=== PATIENT | male | born 1990 | race Caucasian/White ===

== ENCOUNTER 2024-05-24 22:04 | Outpatient (CLI) | payer MEDICAID, SELFPAY ==
--- OUTSIDE RECORDS SUMMARY | 2024-05-30 18:18 | XMS_ITS | Referral Summary ---
Author Organization [facility] Address [address] [place] [address] Care Team Providers Care Warning Analyst Name Role Phone Monserrat Kumar M.D. Primary Care Provider [phone] Source Comments Patient records contain information from all sites at [facility]. For routine questions regarding patient records, call [phone] during business hours, M-F 8:00 AM - 5:00 PM Central Time. Record requests for emergency care only can be directed to [phone] at any time.[facility] Allergies No known active allergies Medications Medication [...] Overview: Added automatically from request for surgery [id number] Nephrolithiasis 06/14/2020 Overview: Added automatically from request for surgery [id number] Abuse Tobacco Smoking 12/19/2018 Obesity Body Mass Index 30-39.9 Adult 03/31/2018 Phobia Social 01/12/2014 Anxiety Generalized Disorder Resolved Problems Problem Noted Date Diagnosed Date Resolved Date Urolithiasis 02/27/2021 08/10/2021 Ureterolithiasis 02/27/2021 08/10/2021 Nephrolithiasis Calcium Phosphate 11/16/2020 08/10/2021 Pain Flank 09/11/2020 03/04/2021 COVID-19 Infection 06/15/2020 Hydronephrosis 06/14/2020 08/10/2021 Overview: Added automatically from request for surgery [id number] Stone Ureteral 06/13/2020 08/10/2021 Pain Knee Right [...] often do you attend chur ch or advent services? Never 12/05/2021 Do you belong to any clubs o r organizations such as sabianism groups, unions, fraternal or athletic groups, or [...] Answer Date Recorded PHQ-2 Score 0 01/30/2024 [facility] - Occupational Stress Questionnaire Answer Date [...] place to sleep or slept in a detention (including now)? Patient refused 12/05/2021 Depression Answer [...] Answer Date Recorded Employment status Unemployed/not in th e paid workforce but seeking employment 12/05/2021 [...] Comments Blood Pressure 116/84 01/30/2024 12:37 PM IT DISASTER RECOVERY MANAGER Pulse 72 01/30/2024 12:37 PM IT DISASTER RECOVERY MANAGER Temperature 37 ??C (98.6 ??F) 12/06/2023 12:55 PM IT DISASTER RECOVERY MANAGER Respiratory Rate 18 01/30/2024 12:37 PM IT DISASTER RECOVERY MANAGER Oxygen Saturation 95% 12/06/2023 12:55 PM IT DISASTER RECOVERY MANAGER Inhaled Oxygen Concentration - - Weight 126 kg (278 lb 3.5 oz) 01/30/2024 12:37 P M IT DISASTER RECOVERY MANAGER Height 183.5 cm (6' 0.24) 01/30/2024 12:[address] Body Mass Index 37.48 01/30/2024 12:37 PM IT DISASTER RECOVERY MANAGER Plan of Treatment Upcoming Encounters Date Type Department Care Team (Late st Contact Info) Description 06/02/2024 2:00 PM CDT Office Visit Department of Urology in [place], [place] [address] [place] [address] Jacob Pacheco M.D. [address] [place] [address] Discharge Disposition: Home or Self Care 07/30/2024 2:30 PM CDT Office Visit Department of Family Medicine in [place], [place] [address] [place] [address] Monserrat Kumar M.D. [address] [address] Medical Devices Implanted Type Area Estate Planning Counselor Device Identifier Shelf Expiration Date Model / Serial / Lot Stnt Uret Inl 7fx26 - Sna - [id number] Implanted:Qty : 1 on 06/13/2020 by Prabhu Carrillo M.D. at [facility] Ureteral Stent Right: Ureter C.R.Bard 12/05/2023 [id number] / NA / [id number] Stnt Uret Inl 6fx26 - Sn/A - [id number] Implanted:Qty : 1 on 07/06/2020 by Ang Holm M.D. at [facility] Ureteral Stent Right: Ureter C.R.Bard 02/01/2024 [id number] / N/A / [id number] Stnt Uret Inl 6fx26 - Sn/A - [id number] Implanted:Qty : 1 on 02/28/2021 by Darwin Grimes M.D. at [facility] Ureteral Stent Left: Ureter C.R.Bard 07/02/2024 [id number] / N/A / [id number] Stnt Uret Inl 6fx24 - Sn/A - [id number] Implanted:Qty : 1 on 03/23/2021 at [facility] Ureteral Stent Left: Ureter C.R.Bard 06/08/2025 [id number] / N/A / [id number] Stnt Uret Inl 6fx26 - [id number] Implanted:Qty : 1 on 09/05/2021 by Ang Holm M.D. at [facility] Ureteral Stent Right: Ureter C.R.Bard 10/27/2025 [id number] / / [id number] Explanted Type Area Estate Planning Counselor Device Identifier Shelf Expiration Date Model / Serial / Lot Stnt Uret Inl 6fx26 - Sn/A - [id number] Implanted:Qty: 1 on 09/14/2020 by Ang Holm M.D. at [facility] Explanted:Qty: 1 on 03/23/2021 at [facility] Ureteral Stent C.R.Bard 02/01/2024 [id number] / N/A / [id number] Procedures Procedure Name Priority Date/Time Associated Diagnosis Comments OUTSIDE CT BODY Routine 05/24/2024 10:55 PM CDT from Last 3 Months Results * CT ABDOMEN PELVIS WO CON-Outside CT Body (05/24/2024 10:55 PM CDT) 05/24/2024 10:5 1 PM CDT Narrative IIMS - 05/25/2024 1:37 AM CDT This order has been created and auto-finalized to support the import of outside images. If available, original interpretation can be found on the Media Tab in Chart Review, in Document Viewer, as an image in QREADS or as an Addendum. If a re-interpretation or overread is required please follow defined workflow.?? Provider Not In System IMG CT PROCEDURES IIMS NA from Last 3 Months Advance Directives For more information, please contact: [phone] * Full Code (Latest Code Status on [...] Due to: Not medically appropriate Care Teams Warning Analyst Relationship Specialty Start Date End Date Monserrat Kumar M.D. [address] [place] [address] PCP - General Family Medicine 01/30/24
--- OUTSIDE RECORDS SUMMARY | 2024-05-30 18:18 | XMS_ITS ---
Author Organization [facility] Address [address] [place] [address] Care Team Providers Care Client Account Specialist Name Role Phone Unavailable Unavailable Unavailable Surgery Details Not on file Complications Check Surgery Details section. Procedure Estimated Blood Loss Check Surgery Details section. Procedure Findings Check Surgery Details section. Procedure Specimens Taken Check Surgery Details section.
--- OUTSIDE RECORDS SUMMARY | 2024-05-30 18:18 | XMS_ITS | Clinical Summary ---
Author Organization [facility] Address [address] [place] [address] Care Team Providers Care Quad Stayer Name Role Phone Monserrat Kumar M.D. Primary Care Provider [phone] [phone] Source Comments Patient records contain information from all sites at [facility]. For routine questions regarding patient records, call [phone] during business hours, M-F 8:00 AM - 5:00 PM Central Time. Record requests for emergency care only can be directed to [phone] at any time.[facility] Allergies No known active allergies Medications Medication [...] Overview: Added automatically from request for surgery [id number] Nephrolithiasis 06/14/2020 Overview: Added automatically from request for surgery [id number] Abuse Tobacco Smoking 12/19/2018 Obesity Body Mass Index 30-39.9 Adult 03/31/2018 Phobia Social 01/12/2014 Anxiety Generalized Disorder Resolved Problems Problem Noted Date Diagnosed Date Resolved Date Urolithiasis 02/27/2021 08/10/2021 Ureterolithiasis 02/27/2021 08/10/2021 Nephrolithiasis Calcium Phosphate 11/16/2020 08/10/2021 Pain Flank 09/11/2020 03/04/2021 COVID-19 Infection 06/15/2020 Hydronephrosis 06/14/2020 08/10/2021 Overview: Added automatically from request for surgery [id number] Stone Ureteral 06/13/2020 08/10/2021 Pain Knee Right [...] often do you attend chur ch or christianity services? Never 12/05/2021 Do you belong to any clubs o r organizations such as worship groups, unions, fraternal or athletic groups, or [...] Answer Date Recorded PHQ-2 Score 0 01/30/2024 [facility] - Occupational Stress [...] place to sleep or slept in a retirement (including now)? Patient refused 12/05/2021 Depression Answer [...] Answer Date Recorded Employment status Unemployed/not in [employer] paid workforce but seeking employment 12/05/2021 Education [...] Comments Blood Pressure 116/84 01/30/2024 12:37 PM GENERAL LOT ATTENDANT Pulse 72 01/30/2024 12:37 PM GENERAL LOT ATTENDANT Temperature 37 ??C (98.6 ??F) 12/06/2023 12:55 PM GENERAL LOT ATTENDANT Respiratory Rate 18 01/30/2024 12:37 PM GENERAL LOT ATTENDANT Oxygen Saturation 95% 12/06/2023 12:55 PM GENERAL LOT ATTENDANT Inhaled Oxygen Concentration - - Weight 126 kg (278 lb 3.5 oz) 01/30/2024 12:37 P M GENERAL LOT ATTENDANT Height 183.5 cm (6' 0.24) 01/30/2024 12:[address] Body Mass Index 37.48 01/30/2024 12:37 PM GENERAL LOT ATTENDANT Plan of Treatment Upcoming Encounters Date Type Department Care Team (Late st Contact Info) Description 06/02/2024 2:00 PM CDT Office Visit Department of Urology in [place], [place] [address] [place] [address] Jacob Pacheco M.D. [address] [place] [id number] Discharge Disposition: Home or Self Care 07/30/2024 2:30 PM CDT Office Visit Department of Family Medicine in [place], [place] [address] [place] [address] Monserrat Kumar M.D. [address] [place] [address] Health Maintenance Due Date Last Done Comments Influenza Vaccine (#1) 2024 , 08/14/2019, 08/14/2019, Additional history exists COVID-19 Vaccine ( season) 2025 10/21/2021, 04/06/2021 Postponed from 07/27/2023 [...] this topic Medical Devices Implanted Type Area Music Video Producer Device Identifier Shelf Expiration Date Model / Serial / Lot Stnt Uret Inl 7fx26 - Sna - [id number] Implanted:Qty : 1 on 06/13/2020 by Prabhu Carrillo M.D. at [facility] Ureteral Stent Right: Ureter C.R.Bard 12/05/2023 [id number] / NA / [id number] Stnt Uret Inl 6fx26 - Sn/A - [id number] Implanted:Qty : 1 on 07/06/2020 by Ang Holm M.D. at [facility] Ureteral Stent Right: Ureter C.R.Bard 02/01/2024 [id number] / N/A / [id number] Stnt Uret Inl 6fx26 - Sn/A - [id number] Implanted:Qty : 1 on 02/28/2021 by Darwin Grimes M.D. at [facility] Ureteral Stent Left: Ureter C.R.Bard 07/02/2024 [id number] / N/A / [id number] Stnt Uret Inl 6fx24 - Sn/A - [id number] Implanted:Qty : 1 on 03/23/2021 at [facility] Ureteral Stent Left: Ureter C.R.Bard 06/08/2025 [id number] / N/A / [id number] Stnt Uret Inl 6fx26 - [id number] Implanted:Qty : 1 on 09/05/2021 by Ang Holm M.D. at [facility] Ureteral Stent Right: Ureter C.R.Bard 10/27/2025 [id number] / / [id number] Explanted Type Area Music Video Producer Device Identifier Shelf Expiration Date Model / Serial / Lot Stnt Uret Inl 6fx26 - Sn/A - [id number] Implanted:Qty: 1 on 09/14/2020 by Ang Holm M.D. at [facility] Explanted:Qty: 1 on 03/23/2021 at [facility] Ureteral Stent C.R.Bard 02/01/2024 [id number] / N/A / [id number] Procedures Procedure Name Priority Date/Time Associated Diagnosis [...] Advance Directives For more information, please contact: [phone] * Full Code (Latest Code Status on [...] Due to: Not medically appropriate Care Teams Quad Stayer Relationship Specialty Start Date End Date Monserrat Kumar M.D. [address] [place] [phone] PCP - General Family Medicine 01/30/24
--- OUTSIDE RECORDS SUMMARY | 2024-05-30 18:18 | XMS_ITS | Clinical Summary ---
Author Organization [employer] [facility] Address [place], [place] [address] Care Team Providers Care Optical Scientist Name Role Phone Monserrat Kumar MD Primary Care Provider +- [phone] Allergies No known active allergies Medications Medication Sig Dispensed Refills Start Date End Date Status venlafaxine extended release (VENLAFAXINE XR, EcoloCap,) 150 mg extended release tablet Take 150 [...] Active Problems Problem Noted Date Diagnosed Date Generalized anxiety disorder 05/25/2024 Kidney stone 08/09/2022 Calculus of ureter 08/19/2021 Overview: Added automatically from request for surgery [id number] Tobacco dependence syndrome 12/19/2018 Obesity with body mass index 30 or greater 03/31 Social phobia 01/12/2014 Encounters Date Type Department Care Team Description 05/25/2024 8:00 AM CDT Hospital Encounter [facility] [address] [place] [address] [facility] [place] [place] Hospitalists Of from Last 3 Months Social History Tobacco Use Types Packs/Day Years Used Date Smoking Tobacco: Every Day Smokeless Tobacco: Never Alcohol Use Standard Drinks/Week Comments Not Currently 0 (1 standard drink = 0.6 oz pur e alcohol) Sex and Gender Information Value Date Recorded Sex Assigned at Male 01/10/2024 8:35 PM [employer] Gender Identity Male 01/10/2024 8:35 PM [employer] Sexual Orientation Straight 01/10/2024 8: 35 PM [employer] Obstetrics History Last Filed Vital Signs Vital Sign Reading Time Taken Comments Blood Pressure 133/86 01/10/2024 8:47 PM [employer] MARK[employer] Pulse 87 01/10/2024 8:47 PM [employer] MARK[employer] Temperature 35.8 ??C (96.5 ??F) 01/10/2024 8:47 PM CS T Respiratory Rate 16 01/10/2024 8:47 PM [employer] MARKER Oxygen Saturation 97% 01/10/2024 8:47 PM [employer] MARKER Inhaled Oxygen Concentration - - Weight 126.7 kg (279 lb 6.4 oz) 01/10/2024 8:47 PM [employer] MARK[employer] Height 185.4 cm (6' 1) 01/10/2024 8:47 PM [employer] MARKER Body Mass Index 36.86 01/10/2024 8:47 PM [employer] MARKER Plan of Treatment Health Maintenance Due Date [...] this topic Medical Devices Implanted Type Area Research And Development Manager Device Identifier Shelf Expiration Date Model / Serial / Lot Stent Contour W/O G.W. 6x28 - [id number] Implanted:Qty: 1 on 08/09/2022 by Ang Holm MD at [facility] Right: [employer] 04/03/2025 [id number] / / [id number] Explanted Type Area Research And Development Manager Device Identifier Shelf Expiration Date Model / Serial / Lot Stent Contour W/O G.W. 6x28 - [id number] Implanted:Qty: 1 on 07/11/2022 by Emeterio Carballo MD at [facility] Explanted:Qty: 1 on 08/09/2022 by Ang Holm MD at [facility] Left: [employer] 02/03/2025 [id number] / / [id number] Stent Contour W/O G.W. 6x28 - [id number] Implanted:Qty: 1 on 07/11/2022 by Emeterio Carballo MD at [facility] Explanted:Qty: 1 on 08/09/2022 at [facility] Right: [employer] 02/03/2025 [id number] / / [id number] Advance Directives * Full Code (Latest Code [...] Preferences, Provider to review later Care Teams Optical Scientist Relationship Specialty Start Date End Date Monserrat Kumar MD [address] [place] [address] H[place] SAAVEDRA [id number] PCP - General Family Practice 01/10/24
== END 2024-05-24 22:05 | disposition home or self-care (01) ==
LOC: AMB 05-30 18:16
PROVIDERS: Visit Provider Internal Medicine
DX: M54.9 Dorsalgia, unspecified (principal)
CPT/HCPCS: A0425; A0427

== ENCOUNTER 2024-05-24 22:34 | Emergency (ER) | payer MEDICAID, SELFPAY ==
--- NOTE | 2024-05-24 22:38 | ED_ITS ---
HPI - General Adult General Chief complaint: Flank Pain Stated complaint: Possible kidney stone Time Seen by Provider: 05/24/24 22:35 History of Present Illness HPI narrative: Patient is a 33-year-old gentleman with a history of kidney stones who comes in with the abrupt onset of left flank pain tonight. He has had multiple kidney stones in the past but none for approximately 18 months. He has general pain in the left flank as well as nausea and diaphoresis. No other other significant symptoms. He has had no blood in his urine no fever or chills. Related Data Home Medications ?Medication ?Instructions ?Recorded ?Confirmed No Known Home Medications 05/24/24 05/24/24 [facility] Medical History (Updated 05/25/24 @ 00:40 by Reji Nagel MD) Depression ?F32.A - Depression, unspecified (ICD-10) Anxiety disorder ?F41.9 - Anxiety disorder, unspecified (ICD-10) Kidney stones ?N20.0 - Calculus of kidney (ICD-10) Surgical History (Updated 05/24/24 @ 22:42 by Arie Dong RN) History of cystoscopy ?Z98.890 - Other specified postprocedural states (ICD-10) Social History Smoking Status: Current every day smoker Do you use any of these nicotine containing products: None Second hand tobacco smoke exposure: No How often do you have a drink containing alcohol: never AUDIT-C Alcohol total score: 0 Non-prescribed substance use: denies use service: No Exam Narrative: Exam Narrative: EXAM GENERAL: Patient appears comfortable and well. EYES: No scleral icterus. ENT: Tympanic membranes and oropharynx normal. THYROID: no thyroid nodules or thyromegaly. LYMPH: No supraclavicular or cervical lymphadenopathy. SKIN: Visible skin seen during exam normal or with benign process only. EXT: No dependent lower extremity pedal edema. HEART: Regular rate and rhythm with no murmurs, rubs, or gallops. LUNGS: Clear to auscultation bilaterally with no crackles or wheezes. ABD: Soft, non tender, non distended. PSYCH: Good eye contact, speech is not pressured. Const: Vital Signs, click to edit/add: Vital Signs - 24 hr 05/24/24 22:39 05/24/24 23:29 Temperature 97.0 F L Pulse Rate [Pulse Oximeter] 97 90 Respiratory Rate 18 16 Blood Pressure [Ri t Upper Arm] 162/91 H 159/80 H Pulse Oximetry 97 93 Oxygen Delivery Me thod Room Air Room Air Course Course ED Course: Patient seen examined. Labs and CT ordered. 1 L normal saline ordered. Vital Signs Vital signs: Initial Vital Signs Temperature 97.0 F L 05/24/24 22:39 Temperature Source Temporal Artery Scan 05/24/24 22:39 Pulse Rate 97 05/24/24 22:39 Pulse Rhythm Regular 05/24/24 22:39 Respiratory Rate 18 05/24/24 22:39 Blood Pressure 162/91 H 05/24/24 22:39 Blood Pressure Mean 114 H 05/24/24 22:39 Blood Pressure Position Supine 05/24/24 22:39 Pulse Oximetry 97 05/24/24 22:39 Oxygen Delivery Method Room Air 05/24/24 22:39 Vital Signs Temperature 97.0 F L 05/24/24 22:39 Pulse Rate 97 05/24/24 22:39 Respiratory Rate 18 05/24/24 22:39 Blood Pressure 162/91 H 05/24/24 22:39 Pulse Oximetry 97 05/24/24 22:39 Oxygen Delivery Method Room Air 05/24/24 22:39 Temperature 97.0 F L 05/24/24 22:39 Pulse Rate 90 05/24/24 23:29 Respiratory Rate 16 05/24/24 23:29 Blood Pressure 159/80 H 05/24/24 23:29 Pulse Oximetry 93 05/24/24 23:29 Oxygen Delivery Method Room Air 05/24/24 23:29 Medications Administered Medications: Generic Name Dose Route Start Last Admin Trade Name Freq PRN Reason Stop Dose Admin Ketorolac Tromethamine 30 mg 05/25/24 00:00 05/25/24 00:13 Ketorolac 30 Mg/Ml Inj IVP 05/25/24 00:01 30 mg ONCE ONE Administration Discontinued Medications Generic Name Dose Route Start Last Admin Trade Name Freq PRN Reason Stop Dose Admin Hydromorphone HCl 0.5 mg 05/24/24 22:46 05/24/24 22:53 Hydromorphone 0.5 Mg/0.5 Ml Inj IVP 05/24/24 22:47 0.5 mg ONCE ONE Administration Ondansetron HCl 4 mg 05/24/24 23:34 05/24/24 23:30 Ondansetron 2 Mg/Ml Inj IVP 05/24/24 23:35 4 mg ONCE ONE Administration Medical Decision Making MDM Narrative Medical decision making narrative: Patient is a 33-year-old gentleman with history of kidney stones who presents with left flank pain. He has a 10 mm stone in his proximal left ureter. He has been treated with IV fluids IV Dilaudid IV Toradol with modest improvement in his flank pain. This time he was transported to [facility] for urology consultation via ambulance. Lab Data Labs: Lab Results 05/24/24 05/24/24 Range/Units 22:54 23:00 WBC 10.40 (4.50-11.00) K/uL RBC 4.73 (4.30-5.90) m/uL Hgb 14.5 (13.5-17.5) gm/dL Hct 43.2 (37.0-53.0) % MCV 91 (80-100) fL MCH 31 (26-34) pg MCHC 34 (32-36) gm/dL RDW Coeff of Betzy 13.0 (11.5-15.5) % Plt Count 222 (140-440) K/uL Neut % (Auto) 72.2 H (42.0-72.0) % Lymph % (Auto) 20.3 (20-44) % Sac % (Auto) 5.1 (0.0-11.0) % Eos % (Auto) 1.1 (0.0-7.0) % Baso % (Auto) 0.0 (0.0-3.0) % Neut # (Auto) 7.50 H (1.7-7.0) K/uL Lymph # (Auto) 2.11 (0.90-2.90) K/uL Sac # (Auto) 0.50 (0.00-0.90) K/UL Eos # (Auto) 0.11 (0.00-0.50) K/uL Baso # (Auto) 0.00 (0.00-0.30) K/uL Abs Immat Gran (auto) 0.13 (0.00-0.30) K/uL Imm/Tot Granulo (auto) 1.3 % Sodium 139 (135-149) mmol/L Potassium 3.7 (3.6-5.1) mmol/L Chloride 109 (96-114) mmol/L Carbon Dioxide 23 (20-32) mmol/L Anion Gap 7 (7-15) mEq/L BUN 16 (5-24) mg/dL Creatinine 0.9 (0.5-1.5) mg/dL Estimated Creat Clear 134.40 Estimated GFR 117 ml/min Glucose 122 H (60-115) mg/dL Calcium 8.9 (8.4-10.6) mg/dL Discharge Plan Discharge Clinical Impression: Kidney stone Patient Disposition: Isidro Salvador Condition: Stable Instructions: Kidney Stones (ED) Activity Level: Other Discharge Diet: Other Prescriptions: No Action No Known Home Medications Follow Up/Referrals: Provider,Not a Local [Primary Care Provider] - Stand Alone Forms: MyHealth Info Instructions
[2024-05-24 22:39] VITALS: BP 162/91; PULSE 97; RESP 18; TEMP 36.1; O2SAT 97; BMI 36.7
--- NOTE | 2024-05-24 22:43 | CRLHL7_ITS ---
For Patients: As a result of the Century Cures Act, medical imaging exams and procedure reports are released immediately into your electronic medical record. You may view this report before your referring provider. If you have questions, please contact your health care provider. INDICATION: left flank pain hx of stones . TECHNIQUE: CT abdomen and pelvis without contrast. COMPARISON: None. FINDINGS: Lower chest: The visualized lower lungs are aerated. No pleural or pericardial effusion. ABDOMEN: Liver: Normal attenuation. Gallbladder and biliary: Normal gallbladder without radiopaque stone. Normal caliber bile ducts. Spleen: Normal size and attenuation. Pancreas: The noncontrast pancreas is homogeneous in attenuation without peripancreatic inflammatory changes or ductal dilatation. Adrenal glands: Normal adrenal glands. Kidneys and ureters: Moderate left-sided hydroureteronephrosis secondary to a 10 millimeter stone in the proximal left ureter. Additional bilateral nonobstructing nephrolithiasis. GI tract: The stomach is relatively decompressed. Normal caliber small and large bowel loops. Normal appendix. Vascular structures: Normal caliber abdominal aorta. Lymph nodes: No lymphadenopathy in the abdomen or pelvis by size criteria. Peritoneum: No free air, free fluid, or focal drainable fluid collection. PELVIS: Genitourinary system: Normal urinary bladder. SKELETAL STRUCTURES AND SOFT TISSUES: A few punctate sclerotic foci in the pelvis statistically represent bone islands. IMPRESSION: 1. Moderate left-sided hydroureteronephrosis secondary to a 10 millimeter stone in the proximal left ureter. 2. Additional bilateral nonobstructing nephrolithiasis. Please note that all CT scans at this facility use dose modulation, iterative reconstruction, and/or weight-based dosing when appropriate to reduce radiation dose to as low as reasonably achievable. Dictated by Prabhu Roberson MD @ 05/25/2024 12:03:03 AM (Electronically Signed)
[2024-05-24] MEDS: HYDROmorphone 0.5 mg/0.5 ml inj IVP (22:53)
[2024-05-24 23:06] LABS: Eosinophils Absolute Auto 0.11 K/uL (0.00-0.50); Eosinophils Percent Auto 1.1 % (0.0-7.0); Hematocrit 43.2 % (37.0-53.0); Hemoglobin* 14.5 gm/dL (13.5-17.5); Immature Granulocytes Abs Auto 0.13 K/uL (0.00-0.30); Immature Granulocytes Pct Auto 1.3 %; Lymphocytes Absolute Auto 2.11 K/uL (0.90-2.90); Lymphocytes Percent Auto 20.3 % (20-44); Mean Corpuscular HGB Conc 34 gm/dL (32-36); Mean Corpuscular Hemoglobin 31 pg (26-34); Mean Corpuscular Volume 91 fL (80-100); Monocytes Percent Auto 5.1 % (0.0-11.0); Neutrophils Percent Auto 72.2 % (42.0-72.0); Platelet Count* 222 K/uL (140-440); Red Blood Count 4.73 m/uL (4.30-5.90)
[2024-05-24 23:14] LABS: Slide Review Reflex No
--- NOTE | 2024-05-24 23:15 | PC.NURSE ---
Pt vomiting, states pain is improved. Rates 8/.
[2024-05-24 23:26] LABS: Chloride* 109 mmol/L (96-114)
[2024-05-24 23:27] LABS: Potassium* 3.7 mmol/L (3.6-5.1); Sodium* 139 mmol/L (135-149)
[2024-05-24 23:29] VITALS: BP 159/80; PULSE 90; RESP 16; O2SAT 93
[2024-05-24 23:29] LABS: Anion Gap 7 mEq/L (7-15); Carbon Dioxide* 23 mmol/L (20-32); Creatinine* 0.9 mg/dL (0.5-1.5); Estimated Glomerular Filt Rate 117 ml/min
[2024-05-24 23:30] LABS: Blood Urea Nitrogen* 16 mg/dL (5-24); Calcium* 8.9 mg/dL (8.4-10.6); Glucose* 122 mg/dL (60-115)
[2024-05-24] MEDS: ONDANSETRON 2 MG/ML inj 4 MG IVP (23:30)
--- OUTSIDE RECORDS SUMMARY | 2024-05-24 23:32 | XMS_ITS ---
Author Organization [facility] Address [address] [place] [address] Care Team Providers Care Behavioral Health Director Name Role Phone Unavailable Unavailable Unavailable Surgery Details Not on file Complications Check Surgery Details section. Procedure Estimated Blood Loss Check Surgery Details section. Procedure Findings Check Surgery Details section. Procedure Specimens Taken Check Surgery Details section.
--- OUTSIDE RECORDS SUMMARY | 2024-05-24 23:32 | XMS_ITS | Clinical Summary ---
Author Organization [facility] Address [address] [place] [address] Care Team Providers Care Cord Maker Name Role Phone Monserrat Kumar M.D. Primary Care Provider [phone] Source Comments Patient records contain information from all sites at [facility]. For routine questions regarding patient records, call [phone] during business hours, M-F 8:00 AM - 5:00 PM Central Time. Record requests for emergency care only can be directed to [phone] at any time.[facility] Allergies No known active allergies Medications Medication Sig Dispensed Refills Start Date End Date Status ketoconazole (NIZORAL) 2 % cream Apply 1 Application topically 2 (two) times a day. Apply to affected and surrounding area(s) until clinical resolution, typically 1 to 3 weeks 60 g 12/06/2023 Active desvenlafaxine (PRISTIQ) 50 mg 24 hr tabletIndications: generalized anxiety disorder,major depressive disorder Take 1 tablet (50 mg total) by mouth daily Indications: major depressive disorder, repeated episodes of anxiety. 90 tablet 4 01/30/2024 Active clonazePAM (KlonoPIN) 1 mg tablet Take 1 tablet (1 mg total) by mouth every morning. 90 tablet 1 01/30/2024 07/28/2024 Active Active Problems Problem Noted Date Diagnosed Date Stone Ureteral 08/19/2021 Overview: Added automatically from request for surgery [id number] Nephrolithiasis 06/14/2020 Overview: Added automatically from request for surgery [id number] Abuse Tobacco Smoking 12/19/2018 Obesity Body Mass Index 30-39.9 Adult 03/31/2018 Phobia Social 01/12/2014 Anxiety Generalized Disorder Resolved Problems Problem Noted Date Diagnosed Date Resolved Date Urolithiasis 02/27/2021 08/10/2021 Ureterolithiasis 02/27/2021 08/10/2021 Nephrolithiasis Calcium Phosphate 11/16/2020 08/10/2021 Pain Flank 09/11/2020 03/04/2021 COVID-19 Infection 06/15/2020 Hydronephrosis 06/14/2020 08/10/2021 Overview: Added automatically from request for surgery [id number] Stone Ureteral 06/13/2020 08/10/2021 Pain Knee Right 03/31/2018 08/14/2018 Overview: Chronic, intermittent, believed from wrestling with a friend > 5 years ago. Stone Kidney And Ureteral 04/29/2017 Immunizations Name Administration Dates Next Due DTaP (Infanrix, [employer]) 07/29/1998,,03/08/1993,1992,1992 HepB, Unspecified 11/28/1993,06/03/1993,03/08/19 93 Hib (HbOC) (discontinued) 11/28/1993,03/08/1993 Hib (PRP-T) (ACTHIB, HIBERIX) 1992 Hib, Unspecified 1992 IPV 02/13/1994,1992,1992 Influenza (IM) Preservative Free 11/01/2010 Influenza, Unspecified 08/12/2009 MCV4 (Menactra)(Discontinued) 06/01/2005 MMR 07/29/1998,01/26/1998,11/28/1993 PCV20 05/08/2022 Polio, Unspecified 07/29/1998, 4,1992,1991 Td (Adult), adsorbed 12/06/2004 Tdap 08/01/2023,11/12/2015 BABS 10/29/1995 influenza vaccine QV(FLUBLOK ) (18 years or older) (PF) 08/14/2019 influenza vaccine quad (FLUZONE/FLUARIX) (6 months and older)(PF) 09/08/2020,08/14/2019,09/21/2018 Family History Medical History Relation Name Comments Allergies Brother 1 Breast cancer Brother 2 tiffanie Breast cancer Mother doug Seizures Mother doug Bipolar Uncle Relation Name Status Comments Brother 1 Brother 2 tiffanie Mother doug Uncle Social History Tobacco Use Types Packs/Day Years Used Date Smoking Tobacco: Every Day Cigarettes 0.3 10 Smokeless Tobacco: Never Tobacco Cessation:Ready to Q uit: No; Counseling Given: Yes Comments:5 cigs/day currently. Smoked since 2010, at most 1 pack per day. Alcohol Use Standard Drinks/Week Comments Not Currently 0 (1 standard drink = 0.6 oz pur e alcohol) Humiliation, Afraid, Rape, and Kick questionnair e Answer Date Recorded Within the last year, have y ou been afraid of your partner or ex-partner? No 12/05/2021 Within the last year, have y ou been humiliated or emotionally abused in other ways by your partner or ex-partner? No Within the last year, have y ou been kicked, hit, slapped, or otherwise physically hurt by your partner or ex-partner? No 12/05/2021 Within the last year, have y ou been raped or forced to have any kind of sexual activity by your partner or ex-partner? No 12/05/2021 Social Connection and Isolat ion Panel [NHANES] Answer Date Recorded In a typical week, how many times do you talk on the phone with family, friends, or neighbors? More than three times a week 12/05/2021 How often do you get togethe r with friends or relatives? More than three times a week 12/05/2021 How often do you attend chur ch or jain services? Never 12/05/2021 Do you belong to any clubs o r organizations such as congregational groups, unions, fraternal or athletic groups, or school groups? No 12/05/2021 How often do you attend meet ings of the clubs or organizations you belong to? Never 12/05/2021 Are you , , di vorced, , never , or living with a partner? Patient declined 12/05/2021 AUDIT-C Answer Date Recorded Q1: How often do you have a drink containing alc ohol? Never 12/05/2021 Average Number of Drinks Not on file 022 Frequency of Binge Drinking Not on file 11/26 Overall Financial Resource Strain (CARDIA) Answe r Date Recorded How hard is it for you to pa y for the very basics like food, housing, medical care, and heating? Patient declined 12/05/2021 PHQ-2 Answer Date Recorded PHQ-2 Score 0 01/30/2024 [facility] - Occupational Stress Questionnaire Answer Date Recorded Do you feel stress - tense, restless, nervous, or anxious, or unable to sleep at night because your mind is troubled all the time - these days? Only a little 12/05/2021 Exercise Vital Sign Answer Date Recorde d On average, how many days pe r week do you engage in moderate to strenuous exercise (like a brisk walk)? Patient declined On average, how many minutes do you engage in exercise at this level? 10 min 12/05/2021 Hunger Vital Sign Answer Date Recorded Within the past 12 months, y ou worried that your food would run out before you got the money to buy more. Patient declined Within the past 12 months, t he food you bought just didn't last and you didn't have money to get more. Patient declined 08/2022 PRAPARE - Transportation Answer Date Re corded In the past 12 months, has l ack of transportation kept you from medical appointments or from getting medications? No 11/26 In the past 12 months, has l ack of transportation kept you from meetings, work, or from getting things needed for daily living? No 12/05/2021 Housing Stability Vital Sign Answer Tanner e Recorded In the last 12 months, was t here a time when you were not able to pay the mortgage or rent on time? Patient refused 12/05/19 22 In the last 12 months, how many places have you lived? 3 12/05/2021 In the last 12 months, was t here a time when you did not have a steady place to sleep or slept in a halfway (including now)? Patient refused 12/05/2021 Depression Answer Date Recor ded PHQ-9 Total Score (max 27) 3 01/29 Nutrition Answer Date Recorded Nutrition: EVOO Fat Source No 12/05 On average, how many serving s of fruits and vegetables do you eat per day (serving size is equal to 1 cup or approximately the size of a tennis ball)? 0-1 12/05/2021 Dental Answer Date Recorded Dental: Regular Dentist No 03/04/20 21 Employment Answer Date Recorded Employment status Unemployed/not in [employer] paid workforce but seeking employment 12/05/2021 Education Answer Date Recorded What is the highest level of school you have completed or the highest degree you have received? 12th grade 01/22/2020 Sex and Gender Information Value Date Recorded Sex Assigned at Male 03/24/2019 3:40 PM CDT Gender Identity Male 03/24/2019 3:40 PM CDT Sexual Orientation Straight 03/24/2019 3: 40 PM CDT Last Filed Vital Signs Vital Sign Reading Time Taken Comments Blood Pressure 116/84 01/30/2024 12:37 PM MECHANICAL ENERGY ENGINEER Pulse 72 01/30/2024 12:37 PM MECHANICAL ENERGY ENGINEER Temperature 37 ??C (98.6 ??F) 12/06/2023 12:55 PM MECHANICAL ENERGY ENGINEER Respiratory Rate 18 01/30/2024 12:37 PM MECHANICAL ENERGY ENGINEER Oxygen Saturation 95% 12/06/2023 12:55 PM MECHANICAL ENERGY ENGINEER Inhaled Oxygen Concentration - - Weight 126 kg (278 lb 3.5 oz) 01/30/2024 12:37 P M MECHANICAL ENERGY ENGINEER Height 183.5 cm (6' 0.24) 01/30/2024 12:[address] Body Mass Index 37.48 01/30/2024 12:37 PM MECHANICAL ENERGY ENGINEER Plan of Treatment Upcoming Encounters Date Type Department Care Team (Late st Contact Info) Description 07/30/2024 2:30 PM CDT Office Visit Department of Family Medicine in [place], [place] [address] [place] [place] [id number] Monserrat Kumar M.D. [address] [place] [phone] Health Maintenance Due Date Last Done Comments Influenza Vaccine (#1) 2024 , 08/14/2019, 08/14/2019, Additional history exists Postponed from 08/26/2023 (Patient Refused) COVID-19 Vaccine (3 - 24 season) 2025 10/21/2021, 04/06/2021 Postponed from 07/27/2023 (Patient Refused) HIV Screening 01/29/2025 Postponed from 1992 (Patient Refused) Hepatitis C Screening 01/29/2025 Postpo jessica from 1992 (Patient Refused) Tobacco Cessation counseling 01/29/2025 01/30/2024 DTaP,Tdap,and Td Vaccines (8 - Td or Tdap) 08/01/2033 08/01/2023, 11/12/2015, 12/06/2004, Additional history exists Hepatitis B Vaccines Completed 11/28/1993, 06/03/1993, 03/08/1993 Pneumococcal vaccine (0-64 years) Completed 05/08/2022 Depression Screening (Annual PHQ-2) Completed 01/30/2024 HPV Vaccines Aged Out No longer eligi ble based on patient's age to complete this topic Medical Devices Implanted Type Area Ring Spinner Device Identifier Shelf Expiration Date Model / Serial / Lot Stnt Uret Inl 7fx26 - Sna - [id number] Implanted:Qty : 1 on 06/13/2020 by Prabhu Carrillo M.D. at [facility] Ureteral Stent Right: Ureter [employer]ard 12/05/2023 [id number] / NA / [id number] Stnt Uret Inl 6fx26 - Sn/A - [id number] Implanted:Qty : 1 on 07/06/2020 by Ang Holm M.D. at [facility] Ureteral Stent Right: Ureter C.[employer].Bard 02/01/2024 [id number] / N/A / [id number] Stnt Uret Inl 6fx26 - Sn/A - [id number] Implanted:Qty : 1 on 02/28/2021 by Darwin Grimes M.D. at [facility] Ureteral Stent Left: Ureter C.[employer].Bard 07/02/2024 [id number] / N/A / [id number] Stnt Uret Inl 6fx24 - Sn/A - [id number] Implanted:Qty : 1 on 03/23/2021 at [facility] Ureteral Stent Left: Ureter C.[employer].Bard 06/08/2025 [id number] / N/A / [id number] Stnt Uret Inl 6fx26 - [id number] Implanted:Qty : 1 on 09/05/2021 by Ang Holm M.D. at [facility] Ureteral Stent Right: Ureter C.[employer].Bard 10/27/2025 [id number] / / [id number] Explanted Type Area Ring Spinner Device Identifier Shelf Expiration Date Model / Serial / Lot Stnt Uret Inl 6fx26 - Sn/A - [id number] Implanted:Qty: 1 on 09/14/2020 by Ang Holm M.D. at [facility] Explanted:Qty: 1 on 03/23/2021 at [facility] Ureteral Stent C.[employer].Bard 02/01/2024 [id number] / N/A / [id number] Advance Directives For more information, please contact: [phone] * Full Code (Latest Code Status on File) Date Activated Date Inactivated Comments 02/28/2021 5:02 PM 03/01/2021 3:25 PM Question Answer Comments Full Code: Discussed * Full Code Date Activated Date Inactivated Comments 02/27/2021 11:50 PM 02/28/2021 5:02 PM Question Answer Comments Full Code: Not Discussed Due to: Not medically appropriate * Full Code Date Activated Date Inactivated Comments 09/11/2020 3:56 PM 09/12/2020 1:26 PM Question Answer Comments Full Code: Discussed * Full Code Date Activated Date Inactivated Comments 06/13/2020 3:02 PM 06/14/2020 2:30 PM Question Answer Comments Full Code: Not Discussed Due to: Not medically appropriate Care Teams Cord Maker Relationship Specialty Start Date End Date Monserrat Kumar M.D. [address] [place] [id number] PCP - General Family Medicine 01/30/24
--- OUTSIDE RECORDS SUMMARY | 2024-05-24 23:32 | XMS_ITS | Clinical Summary ---
Author Organization [facility] Address [place], [place] [address] Care Team Providers Care Eviscerator Name Role Phone Monserrat Kumar MD Primary Care Provider [phone] Allergies No known active allergies Medications Medication Sig Dispensed Refills Start Date End Date Status venlafaxine extended release (VENLAFAXINE XR, [employer],) 150 mg extended release tablet Take 150 mg by mouth once daily before a meal. Active clonazePAM (KLONOPIN) 1 mg tablet Take 1 mg by mouth once daily. 02/28/2022 Active acetaminophen (TYLENOL) 500 mg capsule Take 1,000 mg by mouth every 6 hours if needed. 08/09/2021 Active desvenlafaxine succinate (PRISTIQ) 50 mg Extended-Release tablet Take 50 mg by mouth once daily. Active fluconazole (DIFLUCAN) 150 mg tablet Take 150 mg by mouth once weekly. 12/06/2023 Active ketoconazole 2% topical (NIZORAL) cream Apply 1 Dose topically to affected area(s) two times daily. Active oxyCODONE-acetaminop hen (PERCOCET) 5-325 mg per tabletIndications:Ur eteral stone Take 1 Tablet by mouth every 6 hours if needed for Pain. Max acetaminophen dose: 4000mg in 24 hrs. 20 Tablet 01/10/2024 Active ondansetron (ZOFRAN ODT) 4 mg disintegrating tabletIndications:Ur eteral stone Place 1 Tablet (4 mg) on the tongue every 8 hours if needed for Nausea/Vomiting. 10 Tablet 01/10/2024 Active Active Problems Problem Noted Date Diagnosed Date Kidney stone 08/09/2022 Social History Tobacco Use Types Packs/Day Years Used Date Smoking Tobacco: Every Day Smokeless Tobacco: Never Alcohol Use Standard Drinks/Week Comments Not Currently 0 (1 standard drink = 0.6 oz pur e alcohol) Sex and Gender Information Value Date Recorded Sex Assigned at Male 01/10/2024 8:35 PM CONSTRUCTION CODE ADMINISTRATOR Gender Identity Male 01/10/2024 8:35 PM CONSTRUCTION CODE ADMINISTRATOR Sexual Orientation Straight 01/10/2024 8: 35 PM CONSTRUCTION CODE ADMINISTRATOR Obstetrics History Last Filed Vital Signs Vital Sign Reading Time Taken Comments Blood Pressure 133/86 01/10/2024 8:47 PM CONSTRUCTION CODE ADMINISTRATOR Pulse 87 01/10/2024 8:47 PM CONSTRUCTION CODE ADMINISTRATOR Temperature 35.8 ??C (96.5 ??F) 01/10/2024 8:47 PM CS T Respiratory Rate 16 01/10/2024 8:47 PM CONSTRUCTION CODE ADMINISTRATOR Oxygen Saturation 97% 01/10/2024 8:47 PM CONSTRUCTION CODE ADMINISTRATOR Inhaled Oxygen Concentration - - Weight 126.7 kg (279 lb 6.4 oz) 01/10/2024 8:47 PM CONSTRUCTION CODE ADMINISTRATOR Height 185.4 cm (6' 1) 01/10/2024 8:47 PM CONSTRUCTION CODE ADMINISTRATOR Body Mass Index 36.86 01/10/2024 8:47 PM CONSTRUCTION CODE ADMINISTRATOR Plan of Treatment Health Maintenance Due Date Last Done Comments Tdap 2003 Depression screening for age 12+ 2004 HIV for age 15-65 2007 BMI (ht and wt on same day) for age 18+ 2010 Hepatitis C screening for ag e 18-79 2010 Tetanus booster 2012 COVID-19 vaccine series ( season) 2023 10/21/2021, 04/06/2021 Influenza for age 9-49 07/27/2024 Pneumococcal series for age 6-64 Aged Out No longer eligible b ased on patient's age to complete this topic Medical Devices Implanted Type Area Commercial Lines Underwriter Device Identifier Shelf Expiration Date Model / Serial / Lot Stent Contour W/O G.W. 6x28 - [id number] Implanted:Qty: 1 on 08/09/2022 by Ang Holm MD at [facility] Right: Ureter [employer] 04/03/2025 [id number] / / [id number] Explanted Type Area Commercial Lines Underwriter Device Identifier Shelf Expiration Date Model / Serial / Lot Stent Contour W/O G.W. 6x28 - [id number] Implanted:Qty: 1 on 07/11/2022 by Emeterio Carballo MD at [facility] Explanted:Qty: 1 on 08/09/2022 by Ang Holm MD at [facility] Left: Ureter [facility] 02/03/2025 [id number] / / [id number] Stent Contour W/O G.W. 6x28 - [id number] Implanted:Qty: 1 on 07/11/2022 by Emeterio Carballo MD at [facility] Explanted:Qty: 1 on 08/09/[address] [facility] Right: Ureter [facility] 02/03/2025 [id number] / / [id number] Advance Directives * Full Code (Latest Code Status on File) Date Activated Date Inactivated Comments 08/09/2022 9:06 AM 08/09/2022 4:56 PM Question Answer Comments Code Status Discussion: Unable to Assess Preferences, Provider to review later * Full Code Date Activated Date Inactivated Comments 07/11/2022 9:43 AM 07/11/2022 2:49 PM Question Answer Comments Code Status Discussion: Unable to Assess Preferences, Provider to review later Care Teams Eviscerator Relationship Specialty Start Date End Date Monserrat Kumar MD [address] [place] [address] PCP - General Family Practice 01/10/24
--- OUTSIDE RECORDS SUMMARY | 2024-05-24 23:32 | XMS_ITS | Referral Summary ---
Author Organization [facility] Address [address] [place] [address] Care Team Providers Care X Ray Tech Name Role Phone Monserrat Kumar M.D. Primary Care Provider [phone] [phone] Source Comments Patient records contain information from all sites at [facility]. For routine questions regarding patient records, call [phone] during business hours, M-F 8:00 AM - 5:00 PM Central Time. Record requests for emergency care only can be directed to [phone] at any time.[facility] Allergies No known active allergies Medications Medication [...] Overview: Added automatically from request for surgery [id number] Nephrolithiasis 06/14/2020 Overview: Added automatically from request for surgery [id number] Abuse Tobacco Smoking 12/19/2018 Obesity Body Mass Index 30-39.9 Adult 03/31/2018 Phobia Social 01/12/2014 Anxiety Generalized Disorder Resolved Problems Problem Noted Date Diagnosed Date Resolved Date Urolithiasis 02/27/2021 08/10/2021 Ureterolithiasis 02/27/2021 08/10/2021 Nephrolithiasis Calcium Phosphate 11/16/2020 08/10/2021 Pain Flank 09/11/2020 03/04/2021 COVID-19 Infection 06/15/2020 Hydronephrosis 06/14/2020 08/10/2021 Overview: Added automatically from request for surgery [id number] Stone Ureteral 06/13/2020 08/10/2021 Pain Knee Right [...] quad (FLUZONE/FLUARIX) (6 months and older)(PF) 09/08/2020,08/14/2019,09/21/2018 Social History Tobacco Use Types Packs/Day Years [...] often do you attend chur ch or taoist services? Never 12/05/2021 Do you belong to any clubs o r organizations such as druze groups, unions, fraternal or athletic groups, or [...] Answer Date Recorded PHQ-2 Score 0 01/30/2024 [facility] Occupational Stress Questionnaire Answer Date Recorded [...] place to sleep or slept in a fpc (including now)? Patient refused 12/05/2021 Depression Answer [...] Answer Date Recorded Employment status Unemployed/not in e paid workforce but seeking employment 12/05/2021 Education [...] Comments Blood Pressure 116/84 01/30/2024 12:37 PM DEAN OF GRADUATE STUDIES Pulse 72 01/30/2024 12:37 PM DEAN OF GRADUATE STUDIES Temperature 37 ??C (98.6 ??F) 12/06/2023 12:55 PM DEAN OF GRADUATE STUDIES Respiratory Rate 18 01/30/2024 12:37 PM DEAN OF GRADUATE STUDIES Oxygen Saturation 95% 12/06/2023 12:55 PM DEAN OF GRADUATE STUDIES Inhaled Oxygen Concentration - - Weight 126 kg (278 lb 3.5 oz) 01/30/2024 12:37 P M DEAN OF GRADUATE STUDIES Height 183.5 cm (6' 0.24) 01/30/2024 12:[address] Body Mass Index 37.48 01/30/2024 12:37 PM DEAN OF GRADUATE STUDIES Plan of Treatment Upcoming Encounters Date Type Department Care Team (Late st Contact Info) Description 07/30/2024 2:30 PM CDT Office Visit Department of Family Medicine in [place], [place] [address] [place] [address] Monserrat Kumar M.D. [address] [place] [id number] Medical Devices Implanted Type Area Cushion Padder Device Identifier Shelf Expiration Date Model / Serial / Lot Stnt Uret Inl 7fx26 - Sna - [id number] Implanted:Qty : 1 on 06/13/2020 by Prabhu Carrillo M.D. at [facility] [place] Ureteral Stent Right: Ureter [employer] 12/05/2023 [id number] / NA / [id number] Stnt Uret Inl 6fx26 - Sn/A - [id number] Implanted:Qty : 1 on 07/06/2020 by Ang Holm M.D. at [facility] [place] Ureteral Stent Right: Ureter C.R.Bard 02/01/2024 [id number] / N/A / [id number] Stnt Uret Inl 6fx26 - Sn/A - [id number] Implanted:Qty : 1 on 02/28/2021 by Darwin Grimes M.D. at [facility] [place] Ureteral Stent Left: Ureter C.R.Bard 07/02/2024 [id number] / N/A / [id number] Stnt Uret Inl 6fx24 - Sn/A - [id number] Implanted:Qty : 1 on 03/23/2021 at [facility] [place] Ureteral Stent Left: Ureter C.R.Bard 06/08/2025 [id number] / N/A / [id number] Stnt Uret Inl 6fx26 - [id number] Implanted:Qty : 1 on 09/05/2021 by Ang Holm M.D. at [facility] [place] Ureteral Stent Right: Ureter C.R.Bard 10/27/2025 [id number] / / [id number] Explanted Type Area Cushion Padder Device Identifier Shelf Expiration Date Model / Serial / Lot Stnt Uret Inl 6fx26 - Sn/A - [id number] Implanted:Qty: 1 on 09/14/2020 by Ang Holm M.D. at [facility] [place] Explanted:Qty: 1 on 03/23/2021 at [facility] [place] Ureteral Stent C.R.Bard 02/01/2024 [id number] / N/A / [id number] Advance Directives For more information, please contact: [phone] * Full Code (Latest Code Status on [...] Due to: Not medically appropriate Care Teams X Ray Tech Relationship Specialty Start Date End Date Monserrat Kumar M.D. [address] [place], [place] [address] PCP - General Family Medicine 01/30/24
[2024-05-25] MEDS: KETOROLAC 30 MG/ML inj IVP (00:13)
[2024-05-25] MEDS: HYDROmorphone 0.5 mg/0.5 ml inj IVP (00:38)
[2024-05-25 00:41] VITALS: BP 160/107; PULSE 77; RESP 16; O2SAT 96
--- NOTE | 2024-05-25 00:42 | PC.NURSE ---
Radiology called to push images to [place]. Pt c/o left flank pain 10/. Unable to provide urine at this time. Parents at bedside.
[2024-05-25] MEDS: 0.9 % SODIUM CHLORIDE 1000 ml 1,000 ML IV (00:55)
--- NOTE | 2024-05-25 01:03 | PC.NURSE ---
Pt oxygen sats down to 89% on room air. Pt placed on 2L oxygen per NC, oxygen sats up to 96%.
[2024-05-25 01:45] LABS: Appearance Urine Clear (Clear); Bilirubin Urine Negative (Negative); Blood Urine 3+ (Negative); Color Urine Yellow (Yellow); Glucose Urine Negative (Negative); Ketones Urine Negative (Negative); Leukocyte Esterase Urine Negative (Negative); Nitrite Urine Negative (Negative); Protein Urine 1+ (Negative); Specific Gravity Urine 1.025 (1.000-1.030); Urobilinogen Urine 0.2 (0.2-1.0); pH Urine 6.5 (5.0-8.5)
[2024-05-25 01:55] LABS: Calcium Oxalate Crystals Urine Few; WBC Urine 0-2 (0-5)
[2024-05-25 01:57] VITALS: BP 151/96; PULSE 71; RESP 16; O2SAT 95
[2024-05-25 01:58] VITALS: O2SAT 95
== END 2024-05-25 02:37 | disposition other institution (70) ==
PROVIDERS: Emergency Provider Internal Medicine
DX: N20.0 Calculus of kidney (principal)
CPT/HCPCS: 36415; 74176; 80048; 81001; 81003; 85025; 94761; 96361; 96374; 96375; 99283; 99285; J1170; J1885; J2405; J7030